=== PATIENT | male | born 1990 | race Caucasian/White ===

== ENCOUNTER 2019-08-17 16:17 | Inpatient (IN) | payer BC, MEDICAID ==
[~2019-08-17] VITALS: Ht 177.8 cm; Wt 97.9 kg
--- NOTE | 2019-08-17 16:05 | NUR ---
Admit Note: Chief Complaint: Depression, NOS Legal hold: 5150 Client on involuntary status for DTS Report received from nurse IAM Cruz with use of SBAR Why are they here: 5150 written by Mary Cunningham at [facility] for DTS. Pt threatening suicide because "of my stress." Pt is being seen at [facility] and has had a recent medication change which was the addition of Clonazepam. Assessment What has happened this shift: Pt is very upset over being transferred here he was told by nursing staff at [facility] last night he was going to be going home today. He states he prefers to be alone and is not use to being around people "let alone share a room." S/I, H/I: Denies A/VH: hx of A/H is "on medications." Sleep: insomnia ADL's: WNL's Group attendance:N/A Were meds taken: No Any med S/E: N/A Mental Status Exam Appearance: [place] Eye contact: poor Behavior: upset Speech: flat Mood:depressed Affect:flat Thought process: wants to leave and go home Thought Content: going home Cognition: fair Insight: fair Judgment: fair Interventions PRN's used: N/A Therapeutic interventions: Admit assessment and questioning, MRSA Swab, q 15 min safety checks Restraints/seclusion/emergency medication:N/A Justification: Pt has a long history of mental illness; mainly depression over childhood diseases. Per the patient he feels depressed and stressed most of the time. He was in the process of medication changes at his outpatient clinic when he c/o feelings of SI and made a superficial scratch on his left wrist. He is in need of medication stabilization to prevent future hospitalizations.
[2019-08-17] MEDS ORDERED: acetaminophen 325mg tablet PO PRN (16:40)
[2019-08-17] MEDS ORDERED: LORazepam 1 MG tablet PO PRN (16:40)
[2019-08-17] MEDS ORDERED: mag hydrox/Alum hydrox/simeth 30ml oral suspension PO PRN (16:40)
[2019-08-17] MEDS ORDERED: hydrOXYzine 25 MG tablet PO PRN (16:40)
[2019-08-17] MEDS ORDERED: loperamide 2mg capsule PO PRN (16:40)
[2019-08-17] MEDS ORDERED: magnesium hydroxide 30ml (MOM) UD suspension PO PRN (16:40)
[2019-08-17] MEDS ORDERED: NICOTINE POLACRILEX 2 MG LOZENGE BC PRN (16:40)
[2019-08-17] MEDS ORDERED: ARIP30TA7 PO (17:24)
[2019-08-17] MEDS ORDERED: TOPI25TA15 PO (17:24)
[2019-08-17] MEDS ORDERED: LEVO25TA7 PO (17:24)
[2019-08-17] MEDS ORDERED: RANI300C PO (17:24)
[2019-08-17] MEDS ORDERED: BENZ1TAB7 PO (17:24)
[2019-08-17] MEDS ORDERED: CLON-528 PO (17:24)
[2019-08-17] MEDS ORDERED: OMEP-297 PO (17:24)
[2019-08-17] MEDS ORDERED: LIT300C PO (17:24)
[2019-08-17] MEDS ORDERED: LAMO200T31 PO (17:24)
[2019-08-17] MEDS ORDERED: CYCL-1 PO (17:24)
[2019-08-17] MEDS ORDERED: LURA80TA3 PO (17:24)
[2019-08-17] MEDS ORDERED: PIOG1TAB7 PO (17:24)
[2019-08-17] MEDS ORDERED: FLUV100C2 PO ×2 (17:24)
[2019-08-17] MEDS ORDERED: LIDO700A32 TOP (17:24)
--- NOTE | 2019-08-17 17:36 | NUR ---
aDMIT NOTE: [place] [id number] today on a 5150 for DTS. Pt made a superficial scratch to his L wrist. Pt has been on 3 5150s but this is his first attempt to scratch himself with a boxcutter. Pt states he has not slept well in last couple days but states he slept well at [facility]. 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 Pt has history of depression. Pt has been stressed and upset he is not able to do the things he is supposed to do due to his disability.
[2019-08-17] MEDS ORDERED: cyclobenzaprine 10mg tablet PO PRN (18:10)
[2019-08-17] MEDS ORDERED: famotidine 10mg tablet PO PRN (18:10)
[2019-08-17 19:35] VITALS: BP 131/74
[2019-08-17] MEDS: METFORMIN HCL PO SCH (20:00)
[2019-08-17] MEDS: PIOGLITAZONE HCL PO SCH (20:00)
[2019-08-17] MEDS: lithium carbonate 300mg SR tablet (LithoBID) PO SCH (21:00)
[2019-08-17] MEDS ORDERED: lithium carbonate 300mg SR tablet (LithoBID) PO SCH (21:00)
[2019-08-17 21:18] LABS: ALANINE AMINOTRANSFERASE 103 U/L (12-78); ALBUMIN 3.6 G/DL (3.4-5.0); ALBUMIN/GLOBULIN RATIO 1.1 (1.1-1.5); ALKALINE PHOSPHATASE 80 IU/L (46-116); ANION GAP 6 (8-16); BILIRUBIN,TOTAL 0.5 MG/DL (0.1-1.0); BLOOD UREA NITROGEN 14 MG/DL (7-18); BUN/CREATININE RATIO 12.4 (5.4-32.0); CALCIUM 8.8 MG/DL (8.5-10.1); CHLORIDE 107 MMOL/L (99-107); CREATININE 1.13 MG/DL (0.60-1.10); GLUCOSE 187 MG/DL (70-104); SODIUM 140 MMOL/L (135-145); TOTAL CARBON DIOXIDE 26.6 MMOL/L (24-32); TOTAL PROTEIN 6.8 G/DL (6.4-8.2); eGFR 78 ML/MIN
[2019-08-17 21:21] LABS: ASPARTATE AMINO TRANSFERASE 71 U/L (10-37); POTASSIUM 4.4 MMOL/L (3.5-5.1)
[2019-08-17] MEDS: lamoTRIgine 100mg tablet PO SCH (22:10)
[2019-08-17] MEDS: clonazePAM 1mg tablet PO SCH (22:11)
[2019-08-17] MEDS: benztropine 1mg tablet PO SCH (22:11)
[2019-08-17] MEDS: fluvoxamine 25 MG tablet PO SCH (22:11)
--- NOTE | 2019-08-18 01:54 | NUR ---
Nursing Progress Note: Legal hold: 5150 Client on involuntary status for DTS Report received from Anthony VITALE with use of SBAR. Why are they here: Pt admitted to [place] for Behavioral health on a 5150 for DTS. Pt made a superficial scratch to his L wrist. 5150 written by Mary Cunningham at [facility] for DTS. Pt threatening suicide because "of my stress." Pt is being seen at [facility] and has had a recent medication change which was the addition of Clonazepam. Pt has been on 3 5150s but this is his first attempt to scratch himself with a boxcutter. Pt states he has not slept well in last couple days but states he slept well at [facility]. 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 Pt has history of depression. Pt has been stressed and upset he is not able to do the things he is supposed to do due to his disability. Assessment What has happened this shift: Pt in room awake at start of shift. Pt said he wants to go home His affect is bland he appears depressed. Pt denies depression SI, or anxiety. He may be minimizing because of his desire to go home. Pt has not been hospitalized in a psych unit before. Pt refused to go to group room. Pt upset because "they took my electronics" Per phone call with pt's mom he uses his electronics to calm himself. S/I, H/I: denies A/VH: denies Sleep: asleep at this time ADL's: independent Group attendance: Pt refused to go to group room for snack Were meds taken: yes Any med S/E no Mental Status Exam Appearance: Neat well groomed Eye contact: good Behavior: anxious Speech: Clear, normal volume Mood: Anxious Affect: blunted Thought process: Linear Thought Content: Wants to go home Cognition: poor Insight: poor Judgment: poor PRN's used: none Therapeutic interventions: 1:1 assessment, establishment of rapport, maintained a safe and therapeutic environment, medication administration/monitoring/education, maintained Q 15 min safety checks and fall precautions. Restraints/seclusion/emergency medication: N/A Justification of Continued Inpatient Treatment: Therapeutic support and medication management needed to provide stabilization, prevent decompensation, decreasing risk to patient and re-admittance.
[2019-08-18 07:00] VITALS: BP 131/73
[2019-08-18] MEDS: METFORMIN HCL PO SCH ×2 (08:00→20:00)
[2019-08-18] MEDS ORDERED: LIDOcaine 5% patch TP SCH (08:00)
[2019-08-18] MEDS ORDERED: topiramate 25mg tablet PO SCH (08:00)
[2019-08-18] MEDS: ARIPIPRAZOLE 15 MG TABLET PO SCH (08:00)
[2019-08-18] MEDS: PIOGLITAZONE HCL PO SCH ×2 (08:00→20:00)
[2019-08-18] MEDS: levoTHYROXINE 25mcg tablet PO SCH (08:15)
[2019-08-18] MEDS: pantoprazole 40mg Tablet.DR PO SCH (08:16)
[2019-08-18] MEDS: lamoTRIgine 100mg tablet PO SCH ×2 (08:16→21:14)
[2019-08-18] MEDS: fluvoxamine 25 MG tablet PO SCH ×2 (08:33→21:14)
--- NOTE | 2019-08-18 08:45 | NUR ---
DM Consult: A1C pending at this time. Will monitor for A1C results. Addendum: 08/18/19 at [address] Amended: Links added.
[2019-08-18 16:45] VITALS: BP 143/90
[2019-08-18] MEDS: acetaminophen 325mg tablet PO PRN ×2 (16:45→18:30)
--- NOTE | 2019-08-18 18:17 | NUR ---
Nursing Progress Note: Legal hold: 5150 Client on involuntary status for DTS Report received from IAM Poon with use of SBAR. Why are they here: Pt admitted to [place] for Behavioral health on a 5150 for DTS. Pt made a superficial scratch to his L wrist. 5150 written by Mary Cunningham at [facility] for DTS. Pt threatening suicide because "of my stress." Pt is being seen at [facility] and has had a recent medication change which was the addition of Clonazepam. Pt has been on 3 5150s but this is his first attempt to scratch himself with a boxcutter. Pt states he has not slept well in last couple days but states he slept well at [facility]. 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 Pt has history of depression. Pt has been stressed and upset he is not able to do the things he is supposed to do due to his disability. Assessment What has happened this shift: Patient awake at the beginning of shift. Pt. states he feels stressed because he does not do well in environments like this. He states that at home he can calm himself with garret system and has his dog at home which is of great comfort. Patient states he is just waiting to see the doctor to see when he can go home. Mother here to visit. Held bowling game activity for patient in that he loves to bowl and it helps him cope with his anxiety. Patient fell twice during a five minute time period. The first fall, patient was unharmed and waiting to bowl again. Five minutes later fell and was taken for head CT, left elbow x-ray and neck x-ray. Cleansed open left elbow wound and applied bandages to area. Patient was then taken to CT scanner by NENA Cruz. Patient looked embarrassed for falling and was crying on the ground. Patient stated that he didnt feel anything, when attempting to assess pain. First it was thought that patient was had seizure. Dr. Hightower here to see patient who does not believe it to be seizure. Patient does have left sided weakness and could have fallen from weakness. Patient lying in bed with eyes closed wearing c-spine collar. S/I, H/I: denies A/VH: denies Sleep: Nap x 1. ADL's: independent Group attendance: No Were meds taken: yes Any med S/E: no Mental Status Exam Appearance: Young male, clean and neat wearing hospital attire. Eye contact: good Behavior: Cooperative, anxious. Isolates to room. Speech: Clear, soft, normal volume Mood: Depressed. Affect: blunted/anxious. Thought process: Linear. Circumstantial. Thought Content: Wants to be discharged. Cognition: Alert. Insight: poor Judgment: poor PRN's used: Tylenol. Therapeutic interventions: 1:1 assessment, establishment of rapport, maintained a safe and therapeutic environment, medication administration/monitoring/education, maintained Q 15 min safety checks and fall precautions. Restraints/seclusion/emergency medication: N/A Justification of Continued Inpatient Treatment: Therapeutic support and medication management needed to provide stabilization, prevent decompensation, decreasing risk to patient and re-admittance.
[2019-08-18] MEDS ORDERED: ketorolac tromethamine 15mg/ml inj. IM ONE (19:25)
[2019-08-18 20:00] VITALS: BP 123/60
[2019-08-18] MEDS ORDERED: ketorolac trometh inj. 60 MG/2 ML VIAL IM ONE (20:05)
[2019-08-18] MEDS ORDERED: lurasidone 20mg tablet PO SCH (21:00)
[2019-08-18] MEDS: clonazePAM 1mg tablet PO SCH (21:14)
[2019-08-18] MEDS: benztropine 1mg tablet PO SCH (21:15)
[2019-08-18] MEDS: lithium carbonate 300mg SR tablet (LithoBID) PO SCH (21:16)
--- NOTE | 2019-08-19 02:11 | NUR ---
Nursing Progress Note: Legal hold: 5150 Client on involuntary status for DTS Report received from IAM Cruz with use of SBAR. Why are they here: Pt admitted to [place] for Behavioral health on a 5150 for DTS. Pt made a superficial scratch to his L wrist. 5150 written by Mary Cunningham at [facility] for DTS. Pt threatening suicide because "of my stress." Pt is being seen at [facility] and has had a recent medication change which was the addition of Clonazepam. Pt has been on 3 5150s but this is his first attempt to scratch himself with a boxcutter. Pt states he has not slept well in last couple days but states he slept well at [facility]. 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 Pt has history of depression. Pt has been stressed and upset he is not able to do the things he is supposed to do due to his disability. Assessment What has happened this shift: Pt was in bed at change of shift wearing c-spine pending results of cervical spine x-ray. Pt is depressed and tearful and c/o pain in his head from his fall. Pt is asking to take off the collar and was educated on the reason he had to keep it on. Pt spent visiting hour with his dad. Pt c/o not feeling hungry but he did agree to have snacks with latuda at evening med pass. Pt was given PRN shot of toradol w/evening meds and appears to be sleeping comfortably. S/I, H/I: denies A/VH: denies Sleep: see sleep hours ADL's: independent Group attendance: No Were meds taken: yes Any med S/E: none reported or observed Mental Status Exam Appearance: Young male, clean and neat wearing hospital attire. Pt is wearing c spine collar Eye contact: good Behavior: Cooperative, anxious. Isolates to room. Speech: Clear, soft, normal volume Mood: Depressed. Affect: blunted/anxious. Thought process: Linear. Circumstantial. Thought Content: wants to take off cspine collar Cognition: Alert. Insight: poor Judgment: poor PRN's used: toradol, flexerill Therapeutic interventions: 1:1 assessment, establishment of rapport, maintained a safe and therapeutic environment, medication administration/monitoring/education, maintained Q 15 min safety checks and fall precautions. Restraints/seclusion/emergency medication: N/A Justification of Continued Inpatient Treatment: Therapeutic support and medication management needed to provide stabilization, prevent decompensation, decreasing risk to patient and re-admittance.
[2019-08-19 07:00] VITALS: BP 133/67
[2019-08-19 07:55] LABS: CHOL/HDL RATIO 6.9 (0.00-4.99); CHOLESTEROL 187 MG/DL (0-200); HDL CHOLESTEROL 27 MG/DL (35-60); LDL CHOLESTEROL 123 MG/DL (50-100); TRIGLYCERIDES 258 MG/DL (20-135)
[2019-08-19] MEDS: PIOGLITAZONE HCL PO SCH (08:00)
[2019-08-19] MEDS: METFORMIN HCL PO SCH (08:00)
[2019-08-19] MEDS: ARIPIPRAZOLE 15 MG TABLET PO SCH (08:02)
[2019-08-19] MEDS: lamoTRIgine 100mg tablet PO SCH (08:03)
[2019-08-19] MEDS: fluvoxamine 25 MG tablet PO SCH (08:03)
[2019-08-19] MEDS: levoTHYROXINE 25mcg tablet PO SCH (08:03)
[2019-08-19] MEDS: pantoprazole 40mg Tablet.DR PO SCH (08:03)
--- NOTE | 2019-08-19 09:03 | NUR ---
F/u: A1C results 7.8; pt not appropriate for DM ed at this time. Addendum: 08/19/19 at [address] Amended: Links added.
[2019-08-19] MEDS ORDERED: ARIP15TA8 PO (10:32)
--- NOTE | 2019-08-19 11:27 | NUR ---
Pt was not available to sign TP as pt was d/c home prior to face-face assessment. SS referral closed. Hannah Lincoln [employer] REPAIRER Addendum: 08/19/19 at 1138 by Hannah Lincoln SS Amended: Links added.
--- NOTE | 2019-08-19 12:30 | NUR ---
DISCHARGE NOTE: Patient's mother is here for visit and wishes to take pt. home with her. Patient's belongings were inventoried, and patient was discharged with personal items. Patient currently denies SI, A/V/H. Patient's prescription was sent with him. Patient is discharged in stable condition to home.
== END 2019-08-19 10:57 | disposition home or self-care (01) | DRG 750 ==
LOC: ADULT MH 16:17
PROVIDERS: ADMIT Psychiatry & Neurology Psychiatry; ATTEND Psychiatry & Neurology Psychiatry
DX: F25.0 Schizoaffective disorder, bipolar type (principal); Z94.81 Bone marrow transplant status; I69.354 Hemiplegia and hemiparesis following cerebral infarction affecting left non-dominant side; E11.9 Type 2 diabetes mellitus without complications; D46.9 Myelodysplastic syndrome, unspecified; E03.9 Hypothyroidism, unspecified; K21.9 Gastro-esophageal reflux disease without esophagitis; F43.12 Post-traumatic stress disorder, chronic; T14.91XA Suicide attempt, initial encounter; G40.909 Epilepsy, unspecified, not intractable, without status epilepticus; W18.39XA Other fall on same level, initial encounter; Y93.89 Activity, other specified; Y92.89 Other specified places as the place of occurrence of the external cause; Y99.8 Other external cause status; Z79.899 Other long term (current) drug therapy; Z91.19 Patient's noncompliance with other medical treatment and regimen; Z92.21 Personal history of antineoplastic chemotherapy; Z88.8 Allergy status to other drugs, medicaments and biological substances; Z91.011 Allergy to milk products
CPT/HCPCS: 36415; 70450; 72040; 73080; 80053; 80061; 80178; 82948; 83036; 84443; 87081; J1885